=== PATIENT | female | born 2000 | race Hispanic/Latino ===

== ENCOUNTER 2021-09-15 23:18 | Emergency (ER) | payer SELFPAY ==
[2021-09-16] MEDS ORDERED: Ibuprofen 800 MG TAB ONE (00:19)
== END 2021-09-16 00:22 | disposition home or self-care (01) ==
LOC: ERS 23:18
DX: K08.89 Other specified disorders of teeth and supporting structures (principal)
CPT/HCPCS: 99282

== ENCOUNTER 2021-10-18 19:51 | Emergency (ER) | payer SELFPAY | END 2021-10-18 22:59 | disposition home or self-care (01) | LOC: ERS 19:51 | DX: D17.21 Benign lipomatous neoplasm of skin and subcutaneous tissue of right arm (principal); F17.210 Nicotine dependence, cigarettes, uncomplicated; Z79.899 Other long term (current) drug therapy | CPT/HCPCS: 99283 ==